=== PATIENT | male | born 1940 | race Caucasian/White ===

== ENCOUNTER → 2016-11-09 | Outpatient (CLI) | payer MEDICARE, BC, OTHER ==
[~2016-11-09] MED LIST: ACET50TAOT PO; ATOR1TAB19 PO; BACT800T5 PO; DILT120C PO; HYDR12.55 PO; LEVA1TAB2 PO; NICOTINE LOZENGES; PERCOCET PO; PROAAER10 INH; SPIR1CAP INH; SYMB16INH INH; WARF-23 PO; [UNRECOGNIZED DRUG - CODE] TD
--- NOTE | 2016-11-13 12:33 | SLEEPCENT ---
DATE OF PROCEDURE: 11/09/2016 REFERRING PROVIDER: Dr. Villanueva INTERPRETATION: Nocturnal polysomnography was performed for reevaluation of obstructive sleep apnea diagnosed at another facility 15 years ago. He had worsening symptoms of non-refreshing sleep and it was decided to undergo retitration. I do not know on his initial titration study what his CPAP level had been, but it had been empirically increased over time to 17 and he still had symptoms and a repeat overnight oximetry suggested that this may not be optimal. A total of 7 hours and 52 minutes of data was reviewed with 215.5 minutes of sleep identified. Sleep latency was 14.5 minutes. Rapid eye movement (REM) latency was 281.5 minutes. No slow wave sleep was identified. Sleep efficiency was decreased at 46.2%. Electrocardiogram (EKG) showed normal sinus rhythm with an average heart rate of 68 beats per minute. Speeding and slowing was noted surrounding some respiratory events. Unifocal premature ventricular contractions (PVCs) were also noted. No epileptiform discharge observed. Mr. Caldwell had been fitted with a Resmed AirFit P-10 full face mask of medium size and 15 cm of water pressure was applied to the circuit. That was taken a high of 16 cm, which appeared optimal. On that pressure, his apnea-hypopnea index (AHI) was 0.6 and his ABDI respiratory arousal index (ABDI) was 1.8 Oxygen saturation anneliese was 86%. Periodic limb movement index was elevated at 141.3. Supine REM sleep was seen on this pressure with a reasonably good waveform. IMPRESSION: 1. Obstructive sleep apnea, reasonably palliated on CPAP at 16 cm of water pressure. 2. Periodic limb movements, severe. RECOMMENDATIONS: Recommend continuation of CPAP therapy at the above pressure via a medium Resmed AirFit P-10 full face mask or mask of his preference. Clinical correlation will be necessary to ensure eradication of symptoms. LISET
== END ==
LOC: M SLEEP 19:24
PROVIDERS: ATTEND Internal Medicine Pulmonary Disease
DX: G47.33 Obstructive sleep apnea (adult) (pediatric) (principal)